=== PATIENT | female | born 1940 | race Two or more races ===

== ENCOUNTER → 2021-03-17 | Outpatient (CLI) | payer OTHER | END | disposition home or self-care (01) | LOC: Rad HDHVI 14:08 | PROVIDERS: ATTEND Internal Medicine Cardiovascular Disease | DX: I51.9 Heart disease, unspecified (principal) | CPT/HCPCS: 93306 ==

== ENCOUNTER → 2021-07-21 | Outpatient (CLI) | payer OTHER ==
[2021-07-21 12:00] VITALS: BP 141/57
[2021-07-21 12:32] VITALS: BP 141/57
[2021-07-21 12:40] VITALS: BP 112/54
[2021-07-21 13:00] VITALS: BP 112/54
[2021-07-21 13:08] VITALS: BP 141/57
== END | disposition home or self-care (01) ==
LOC: CHF HDHVI 10:38
PROVIDERS: ATTEND Internal Medicine Cardiovascular Disease
DX: I25.118 Atherosclerotic heart disease of native coronary artery with other forms of angina pectoris (principal); I11.0 Hypertensive heart disease with heart failure; I50.43 Acute on chronic combined systolic (congestive) and diastolic (congestive) heart failure; E78.5 Hyperlipidemia, unspecified; R06.02 Shortness of breath; M79.89 Other specified soft tissue disorders; Z95.5 Presence of coronary angioplasty implant and graft
CPT/HCPCS: 93005; G0166; G0463

== ENCOUNTER → 2021-07-22 | Outpatient (CLI) | payer OTHER ==
[2021-07-22 11:28] VITALS: BP 125/65
[2021-07-22 12:00] VITALS: BP 144/55
== END | disposition home or self-care (01) ==
LOC: CHF HDHVI 10:54
PROVIDERS: ATTEND Internal Medicine Cardiovascular Disease
DX: I25.118 Atherosclerotic heart disease of native coronary artery with other forms of angina pectoris (principal); I11.0 Hypertensive heart disease with heart failure; I50.43 Acute on chronic combined systolic (congestive) and diastolic (congestive) heart failure; E78.5 Hyperlipidemia, unspecified; M79.89 Other specified soft tissue disorders; R06.02 Shortness of breath; Z95.5 Presence of coronary angioplasty implant and graft
CPT/HCPCS: G0166

== ENCOUNTER 2021-07-25 16:16 | Inpatient (IN) | payer OTHER ==
[~2021-07-25] VITALS: Ht 154.9 cm; Wt 62.5 kg
[2021-07-25 16:53] LABS: Basophils # (auto) 0 10 ^3/uL (0-0.2); Basophils % (auto) 0.6 % (0.0-2.0); Eosinophils # (auto) 0.2 10 ^3/uL (0-0.8); Eosinophils % (auto) 3.7 % (0.0-7.0); Hemoglobin 11.3 g/dL (12.2-16.2); Lymphocytes # (auto) 1.1 10 ^3/uL (0.4-5.4); Lymphocytes % (auto) 19.3 % (10.0-50.0); Mean Corpuscular Hemoglobin 29.8 pg (28.0-32.0); Mean Corpuscular Hgb Conc. 32.3 g/dL (32.0-36.0); Mean Corpuscular Volume 92.4 fL (80.0-100.0); Monocytes # (auto) 0.4 10 ^3/uL (0-1.3); Monocytes % (auto) 7.7 % (0.0-12.0); Neutrophils # (auto) 3.7 10 ^3/uL (1.6-8.6); Neutrophils % (auto) 68.7 % (37.0-80.0); Red Blood Cells 3.79 10^6/uL (4.0-5.20); Red Cell Distribution Width 14.7 % (11.8-14.3); White Blood Cell 5.4 10^3/uL (4.4-10.8)
[2021-07-25 17:11] LABS: Albumin 2.7 g/dL (3.4-5.0); Anion Gap 9 (5-15); Blood Urea Nitrogen 23 mg/dL (7-18); Calcium 8.5 mg/dL (8.5-10.1); Carbon Dioxide 19 mmol/L (21-32); Chloride 111 mmol/L (98-107); Glucose 208 mg/dL (74-106); Magnesium 1.7 mg/dL (1.6-2.6); Potassium 4.5 mmol/L (3.5-5.1); Sodium 139 mmol/L (136-145)
[2021-07-25 17:18] LABS: Alanine Aminotransferase 14 U/L (13-56); Alkaline Phosphatase 87 U/L (45-117); Aspartate Aminotransferase 11 U/L (15-37); BUN/Creatinine Ratio 20.9; Bilirubin, Total 0.3 mg/dL (0.2-1.0); GFR African American 61 mL/min; GFR Non-African American 51 mL/min; Total Protein 6.8 g/dL (6.4-8.2)
[2021-07-25 17:22] LABS: INR 1.1 (0.9-1.15)
[2021-07-25] MEDS ORDERED: DOCUSATE SOD 100 MG CAP PO PRN (23:30)
[2021-07-25] MEDS ORDERED: DEXTROSE (50%) 50ML SYRG IV PRN (23:30)
[2021-07-25] MEDS ORDERED: LORazepam 0.5 MG TAB PO PRN (23:30)
[2021-07-25] MEDS ORDERED: ACETAMINOPHEN 325 MG TAB PO PRN (23:30)
[2021-07-25] MEDS ORDERED: MORPHINE SULFATE INJECTION 2 MG/ML SYRG IV PRN (23:30)
[2021-07-25] MEDS ORDERED: NITROGLYCERIN 0.4 MG SL TAB SL PRN (23:30)
[2021-07-25] MEDS ORDERED: ALBUMIN 25% 50 ML IV ONE (23:30)
[2021-07-26] VITALS (9 sets, daily range): BP systolic 95–159; BP diastolic 39–63
[2021-07-26] MEDS ORDERED: INFLUENZA QUAD 2020-2021 0.5 ML SYRG IM ONE (04:15)
[2021-07-26] MEDS ORDERED: PNEUMOCOCCAL VACC POLYS 25 MCG/0.5 ML VIAL IM ONE (04:15)
[2021-07-26] MEDS ORDERED: ALBUTEROL SULF HFA 90MCG INH 200DOSE IN SCH (06:00)
[2021-07-26] MEDS: ACCU-CHEK COMFORT CURVE STRIP VI SCH ×4 (06:11→22:45)
[2021-07-26] MEDS: SODIUM CHLOR 0.9% PF (SALINE LOCK) 10ML VIAL/SYR IV SCH ×3 (06:11→22:42)
[2021-07-26] MEDS ORDERED: INSLANTI SC (06:19)
[2021-07-26] MEDS ORDERED: LATA0.0020 EACHEYE (06:19)
[2021-07-26] MEDS ORDERED: ASPI-498 OR (06:19)
[2021-07-26] MEDS ORDERED: ATOR40TA52 PO (06:19)
[2021-07-26] MEDS ORDERED: EPLE25TA4 PO (06:19)
[2021-07-26] MEDS ORDERED: OME20GT GT (06:19)
[2021-07-26] MEDS ORDERED: FLUT1AER3 IN (06:19)
[2021-07-26] MEDS ORDERED: LEV100T PO (06:19)
[2021-07-26] MEDS ORDERED: TICA90TA PO (06:19)
[2021-07-26] MEDS ORDERED: CARV25TA55 PO (06:19)
[2021-07-26] MEDS ORDERED: SERT50TA19 PO (06:19)
[2021-07-26] MEDS: InsuLIN REG 1unit/0.01ml Soln (100units/ml) SC SCH ×4 (06:22→23:12)
[2021-07-26] MEDS ORDERED: MORPHINE SULFATE INJECTION 2 MG/ML SYRG IV PRN (07:15)
[2021-07-26 07:24] LABS: Basophils # (auto) 0 10 ^3/uL (0-0.2); Basophils % (auto) 0.8 % (0.0-2.0); Eosinophils # (auto) 0.2 10 ^3/uL (0-0.8); Eosinophils % (auto) 4.1 % (0.0-7.0); Hematocrit 30.8 % (36.0-46.0); Hemoglobin 10.4 g/dL (12.2-16.2); Lymphocytes # (auto) 1.5 10 ^3/uL (0.4-5.4); Lymphocytes % (auto) 24.9 % (10.0-50.0); Mean Corpuscular Hemoglobin 30.7 pg (28.0-32.0); Mean Corpuscular Hgb Conc. 33.8 g/dL (32.0-36.0); Mean Corpuscular Volume 90.7 fL (80.0-100.0); Monocytes # (auto) 0.5 10 ^3/uL (0-1.3); Monocytes % (auto) 8.3 % (0.0-12.0); Neutrophils # (auto) 3.7 10 ^3/uL (1.6-8.6); Neutrophils % (auto) 61.9 % (37.0-80.0); Nucleated Red Blood Cells % 0.1 %; Red Cell Distribution Width 14.9 % (11.8-14.3)
[2021-07-26 07:43] LABS: Calcium 8.4 mg/dL (8.5-10.1); Potassium 4.5 mmol/L (3.5-5.1)
[2021-07-26 07:50] LABS: Albumin 2.8 g/dL (3.4-5.0); Bilirubin, Total 0.3 mg/dL (0.2-1.0); Total Protein 6.4 g/dL (6.4-8.2)
[2021-07-26] MEDS: SERTRALINE HCL 50 MG TAB PO SCH (10:03)
[2021-07-26] MEDS: AZITHROMYCIN 500MG/ 250ML 250 ML IV SCH (10:03)
[2021-07-26] MEDS: ZINC SULFATE 220mg CAP or TAB PO SCH (10:03)
[2021-07-26] MEDS: FAMOTIDINE (10MG/ML) 2ML VL IV SCH (10:03)
[2021-07-26] MEDS: MULTIPLE VITAMIN TAB PO SCH (10:03)
[2021-07-26] MEDS: ASPirin 81 mg TAB PO SCH (10:03)
[2021-07-26] MEDS: ASCORBIC ACID 500 MG TAB PO SCH ×2 (10:03→22:45)
[2021-07-26] MEDS: methylPREDNISolone SOD SUCC 40 MG/ML VL IV SCH ×2 (10:03→22:42)
[2021-07-26] MEDS: ONDANSETRON HCL 4 MG/2 ML VIAL IV PRN (11:00)
[2021-07-26] MEDS: ALBUTEROL SULF 2.5 MG/0.5ML(0.5%) NEB SOLN NEB SCH ×3 (14:08→21:55)
[2021-07-26] MEDS: IPRATROPIUM BROM 0.5 MG/2.5ML INH SOL NEB SCH ×3 (14:08→21:55)
[2021-07-26] MEDS: CARVEDILOL 12.5 MG TAB PO SCH (22:00)
[2021-07-26] MEDS: TICAGRELOR 90 MG TAB GT SCH (22:42)
[2021-07-26] MEDS: ATORVASTATIN 20 MG TAB PO SCH (22:45)
[2021-07-27] MEDS: ALBUTEROL SULF 2.5 MG/0.5ML(0.5%) NEB SOLN NEB SCH ×6 (02:00→22:11)
[2021-07-27] MEDS: IPRATROPIUM BROM 0.5 MG/2.5ML INH SOL NEB SCH ×6 (02:00→22:11)
[2021-07-27 05:00] VITALS: BP 108/48
[2021-07-27] MEDS: SODIUM CHLOR 0.9% PF (SALINE LOCK) 10ML VIAL/SYR IV SCH ×3 (05:30→22:30)
[2021-07-27] MEDS: ACCU-CHEK COMFORT CURVE STRIP VI SCH ×4 (05:55→22:30)
[2021-07-27] MEDS: InsuLIN REG 1unit/0.01ml Soln (100units/ml) SC SCH ×4 (06:04→22:34)
[2021-07-27 09:00] VITALS: BP 119/49
[2021-07-27] MEDS: TICAGRELOR 90 MG TAB GT SCH ×2 (09:41→22:30)
[2021-07-27] MEDS: methylPREDNISolone SOD SUCC 40 MG/ML VL IV SCH ×2 (09:41→22:30)
[2021-07-27] MEDS: FAMOTIDINE (10MG/ML) 2ML VL IV SCH (09:41)
[2021-07-27] MEDS: AZITHROMYCIN 500MG/ 250ML 250 ML IV SCH (09:41)
[2021-07-27] MEDS: ASPirin 81 mg TAB PO SCH (09:42)
[2021-07-27] MEDS: CARVEDILOL 12.5 MG TAB PO SCH ×2 (09:42→22:31)
[2021-07-27] MEDS: ZINC SULFATE 220mg CAP or TAB PO SCH (09:42)
[2021-07-27] MEDS: SERTRALINE HCL 50 MG TAB PO SCH (09:43)
[2021-07-27] MEDS: MULTIPLE VITAMIN TAB PO SCH (09:43)
[2021-07-27] MEDS: ASCORBIC ACID 500 MG TAB PO SCH ×2 (09:43→22:31)
[2021-07-27] MEDS ORDERED: EPLERENONE 25 MG PO SCH (10:00)
[2021-07-27] MEDS: ONDANSETRON HCL 4 MG/2 ML VIAL IV PRN (10:22)
[2021-07-27] MEDS ORDERED: REGADENOSON 0.4 MG/5 ML SYRG IV ONE (11:00)
[2021-07-27 13:00] VITALS: BP 129/46
[2021-07-27] MEDS ORDERED: LATA0.0019 LEFTEYE (13:23)
[2021-07-27 17:00] VITALS: BP 153/66
[2021-07-27 22:00] VITALS: BP 141/55
[2021-07-27] MEDS ORDERED: LATANOPROST 0.005 % OPTH(EYE) SOL 2.5ML LEFTEYE SCH (22:00)
[2021-07-27] MEDS: ATORVASTATIN 20 MG TAB PO SCH (22:30)
[2021-07-28] MEDS: IPRATROPIUM BROM 0.5 MG/2.5ML INH SOL NEB SCH ×4 (02:00→13:46)
[2021-07-28] MEDS: ALBUTEROL SULF 2.5 MG/0.5ML(0.5%) NEB SOLN NEB SCH ×4 (02:00→13:46)
[2021-07-28 05:00] VITALS: BP 146/54
[2021-07-28] MEDS ORDERED: CHOLESTYRAMINE 4 GM POWDER PO SCH (06:00)
[2021-07-28] MEDS: SODIUM CHLOR 0.9% PF (SALINE LOCK) 10ML VIAL/SYR IV SCH ×2 (06:16→15:12)
[2021-07-28] MEDS: ACCU-CHEK COMFORT CURVE STRIP VI SCH ×3 (06:16→17:20)
[2021-07-28] MEDS: InsuLIN REG 1unit/0.01ml Soln (100units/ml) SC SCH ×3 (06:20→17:47)
[2021-07-28 09:00] VITALS: BP 145/51
[2021-07-28] MEDS: ASCORBIC ACID 500 MG TAB PO SCH (10:00)
[2021-07-28] MEDS: ZINC SULFATE 220mg CAP or TAB PO SCH (10:00)
[2021-07-28] MEDS: CARVEDILOL 12.5 MG TAB PO SCH (10:00)
[2021-07-28 13:00] VITALS: BP 143/88
[2021-07-28] MEDS: FAMOTIDINE (10MG/ML) 2ML VL IV SCH (15:07)
[2021-07-28] MEDS: AZITHROMYCIN 500MG/ 250ML 250 ML IV SCH (15:10)
[2021-07-28] MEDS: ASPirin 81 mg TAB PO SCH (15:10)
[2021-07-28] MEDS: methylPREDNISolone SOD SUCC 40 MG/ML VL IV SCH (15:10)
[2021-07-28] MEDS: MULTIPLE VITAMIN TAB PO SCH (15:11)
[2021-07-28] MEDS: SERTRALINE HCL 50 MG TAB PO SCH (15:12)
[2021-07-28 16:29] VITALS: BP 143/88
[2021-07-28 17:00] VITALS: BP 153/70
[2021-07-28] MEDS ORDERED: TICAGRELOR 90 MG TAB PO SCH (22:00)
== END 2021-07-28 18:10 | disposition home or self-care (01) | DRG 193 ==
LOC: ER 16:16 → OVERFLOW 23:24 → CENTRAL 07-26 02:33
PROVIDERS: ADMIT Nurse Practitioner Family; ATTEND Internal Medicine Cardiovascular Disease
DX: J18.9 Pneumonia, unspecified organism (principal); J96.01 Acute respiratory failure with hypoxia; I50.33 Acute on chronic diastolic (congestive) heart failure; J44.1 Chronic obstructive pulmonary disease with (acute) exacerbation; J44.0 Chronic obstructive pulmonary disease with (acute) lower respiratory infection; I13.0 Hypertensive heart and chronic kidney disease with heart failure and stage 1 through stage 4 chronic kidney disease, or unspecified chronic kidney disease; Z20.822 Contact with and (suspected) exposure to COVID-19; E88.09 Other disorders of plasma-protein metabolism, not elsewhere classified; E11.65 Type 2 diabetes mellitus with hyperglycemia; F32.9 Major depressive disorder, single episode, unspecified; E03.9 Hypothyroidism, unspecified; E78.00 Pure hypercholesterolemia, unspecified; E05.80 Other thyrotoxicosis without thyrotoxic crisis or storm; N18.9 Chronic kidney disease, unspecified; E11.22 Type 2 diabetes mellitus with diabetic chronic kidney disease; I25.10 Atherosclerotic heart disease of native coronary artery without angina pectoris; F17.210 Nicotine dependence, cigarettes, uncomplicated; Z90.710 Acquired absence of both cervix and uterus; Z95.5 Presence of coronary angioplasty implant and graft; Z90.49 Acquired absence of other specified parts of digestive tract; Z88.0 Allergy status to penicillin; Z88.2 Allergy status to sulfonamides; Z88.8 Allergy status to other drugs, medicaments and biological substances; Z91.041 Radiographic dye allergy status
CPT/HCPCS: 36415; 71045; 80053; 82962; 83036; 83605; 83735; 83880; 84443; 84484; 85025; 85379; 85610; 87040; 87426; 87804; 93005; 94640; 96365; G0378; J1815; J2405; J3490

== ENCOUNTER → 2022-01-28 | Outpatient (CLI) | payer OTHER ==
[~2022-01-28] VITALS: Ht 157.5 cm; Wt 60.3 kg
[~2022-01-28] MED LIST: ASPI-498 OR; ATOR40TA52 PO; CARV25TA55 PO; EPLE25TA4 PO; FLUT1AER3 IN; INSLANTI SC; LATA0.0019 LEFTEYE; LATA0.0020 EACHEYE; LEV100T PO; OME20GT GT; SERT50TA19 PO; TICA90TA PO
== END | disposition home or self-care (01) ==
LOC: Rad HDHVI 13:17
PROVIDERS: ATTEND Internal Medicine Cardiovascular Disease
DX: I13.0 Hypertensive heart and chronic kidney disease with heart failure and stage 1 through stage 4 chronic kidney disease, or unspecified chronic kidney disease (principal); E11.22 Type 2 diabetes mellitus with diabetic chronic kidney disease; I50.43 Acute on chronic combined systolic (congestive) and diastolic (congestive) heart failure; N18.9 Chronic kidney disease, unspecified; I25.10 Atherosclerotic heart disease of native coronary artery without angina pectoris; I25.2 Old myocardial infarction; J44.9 Chronic obstructive pulmonary disease, unspecified; E78.5 Hyperlipidemia, unspecified; E78.00 Pure hypercholesterolemia, unspecified; E03.9 Hypothyroidism, unspecified; F32.9 Major depressive disorder, single episode, unspecified; Z87.891 Personal history of nicotine dependence; Z90.49 Acquired absence of other specified parts of digestive tract; Z90.710 Acquired absence of both cervix and uterus; Z95.5 Presence of coronary angioplasty implant and graft
CPT/HCPCS: 78472; 96374; A9505; 96375